=== PATIENT | male | born 1980 | race Two or more races ===

== ENCOUNTER 2018-09-30 09:03 | Day surgery (SDC) | payer OTHER ==
[2018-09-27 16:14] LABS: HEMATOCRIT 42.1 % (42.0-54.0); HEMOGLOBIN 14.8 g/dL (13.5-17.5); MCH 31.9 pg (26.0-34.0); MCHC 35.2 g/dL (31.0-37.0); MCV 90.7 fL (80.0-100.0); MEAN PLATELET VOLUME 9.7 fL (7.4-10.4); RBC 4.64 10x6/uL (4.20-6.10); RDW 13.3 % (11.5-14.5); WBC 9.1 10x3/uL (4.8-10.8)
[~2018-09-30] VITALS: Ht 152.4 cm; Wt 119.3 kg
[2018-09-30 10:27] VITALS: BP 131/71; Ht 152.4 cm; Wt 119.3 kg
[2018-09-30] MEDS ORDERED: HYDROCODON-ACE1 EAC7 PO (15:10)
[2018-09-30] MEDS ORDERED: CYCLOBENZAPRINE10 MG PO (15:11)
== END 2018-09-30 18:00 | disposition home or self-care (01) ==
LOC: D.OPS 09:03 → D.PAN 09:30 → D.OPS 10:30 → EDSEX 10:30 → D.PAN 10:45 → D.OPS 18:00
PROVIDERS: Anesthesiology
DX: K43.6 Other and unspecified ventral hernia with obstruction, without gangrene (principal)